=== PATIENT | female | born 1955 | race Caucasian/White ===

== ENCOUNTER 2019-04-05 08:39 | Inpatient (IN) | payer BC ==
[~2019-04-05 08:39] MED LIST: CEFAZOLIN 2 Gram 2 GM/50 ML BAG IVPB ONE; CELECOXIB 100 MG CAPSULE PO ONE; FAMOTIDINE 20MG TABLET PO ONE; MECLIZINE 25 MG TABLET PO ONE; METOCLOPRAMIDE 10 MG TABLET PO ONE; VANCOMYCIN 1GM/200ML PREMIX 1 GM/200 ML PIGGYBACK IVPB ONE
[2019-04-05] MEDS ORDERED: RINGERS SOLUTION,LACTATED 1,000 ML IV ONE ×3 (09:20→12:01)
[2019-04-05 09:31] LABS: ABO GROUP B; ANTIBODY SCREEN NEGATIVE (NEGATIVE); RH TYPE POSITIVE
[2019-04-05] MEDS ORDERED: BUPIVACAINE 0.5% W/EPI MPF 30 ML VIAL SQ ONE (11:06)
[2019-04-05] MEDS ORDERED: TRANEXAMIC ACID 1,000 MG/10 ML ML IU ONE (11:06)
[2019-04-05] MEDS ORDERED: TRANEXAMIC ACID 1,000 MG/10 ML ML IVPB ONE (11:06)
[2019-04-05] MEDS ORDERED: DIPHENHYDRAMINE HCL 25 MG CAPSULE PO PRN (12:12)
[2019-04-05] MEDS ORDERED: KETOROLAC 30 MG/ML VIAL IVP PRN (12:12)
[2019-04-05] MEDS ORDERED: BISACODYL 10 MG SUPP RC PRN (12:12)
[2019-04-05] MEDS ORDERED: ONDANSETRON HCL IV 4 MG/2 ML VIAL IVP PRN (12:12)
[2019-04-05] MEDS ORDERED: HYDROCODONE/APAP 10/325 TABLET PO PRN (12:12)
[2019-04-05] MEDS ORDERED: NALOXONE 0.4 MG/1 ML VIAL IVP PRN (12:12)
[2019-04-05] MEDS ORDERED: MAGNESIUM HYDROXIDE 30 ML UDC PO PRN (12:12)
[2019-04-05] MEDS ORDERED: TRAMADOL HCL 50 MG TABLET PO PRN (12:12)
[2019-04-05] MEDS ORDERED: AL HYDROX/MAG HYDROX 30ML UD PO PRN (12:12)
[2019-04-05] MEDS ORDERED: ACETAMINOPHEN W/ CODEINE 300MG/60MG TABLET PO PRN ×2 (12:12)
[2019-04-05] MEDS ORDERED: HYDROMORPHONE HCL 2 MG/ML VIAL IM PRN (12:12)
[2019-04-05] MEDS ORDERED: ACETAMINOPHEN 325 MG TAB PO PRN (12:12)
[2019-04-05] MEDS ORDERED: ZOLPIDEM TARTRATE 5 MG TABLET PO PRN (12:12)
[2019-04-05] MEDS: HYDROCODONE/APAP 10/325 TABLET PO PRN ×3 (14:22→21:43)
[2019-04-05] MEDS ORDERED: DEXAMETHASONE 4 MG/ML 1ML VIAL IVP ONE (14:52)
[2019-04-05] MEDS ORDERED: 0.9 % SODIUM CHLORIDE 10 ML VIAL IVP ONE (14:52)
[2019-04-05] MEDS ORDERED: ROPIVACAINE HCL (NAROPIN) /PF 5MG/ML 20ML VIAL IV ONE (14:52)
--- NOTE | 2019-04-05 15:18 | Rehab Evaluation ---
Patient Information - Patient Information Diagnosis: R hip OA Ordered Treatment: PT Evaluate and Treat Status: Initial Evaluation Surgery: Yes (Hip THR) Date of Surgery: 04/05/19 Past Medical/Surgical Hx: PAST MEDICAL/SURGICAL HISTORY Past Surgical History LEFT KNEE SCOPE C SCOPEs LEFT BREAST LUMPECTOMY PMH - Respiratory Hx Respiratory Disorders Yes Hx Bronchitis Yes: HX OF Hx Sleep Apnea Yes: HAD NEG STUDY GOING TO DO ANOTHER STUDY Hx of CPAP No PMH - Cardiovascular Hx Cardiovascular Disorders Yes Exercise Tolerance Good Comment: HYPERLIPIDEMIA PMH - Neuro Hx Neurological Disorders No PMH - GI Hx Gastrointestinal Disorders Yes Hx Gastroesophageal Reflux Yes: CONTROLLED WITH PRILOSEC PMH - Hx Genitourinary Disorders Yes Hx Bladder Problem Yes: LEAKING AT TIMES PMH - Endocrine Hx Endocrine Disorders No PMH - Musculoskeletal Hx Musculoskeletal Disorders Yes Hx Arthritis Yes: RIGHT HIP, KNEES, LUMBAR SPINE Comment: OSTEOPENIA PMH - Psych Hx Psychiatric Problems Yes Hx Anxiety Yes Hx Depression Yes PMH - Hematology/Oncology Hx Hematology/Oncology Yes Disorders Hx Cancer Yes: LEFT BREAST Hx Chemotherapy Yes: TAMOXIFEN X'S 4 YRS Premorbid Status: Detail (The patient was independent with all mobility prior to surgery.) Social History: Detail (The patient lives with spouse in a two story house with 4 steps at the enterance and no handrails. The patient's bedroom and bathroom are on the main level. The bathroom is equipped with : walk in shower, hand held shower, shower bench with handles, standard toilet seat with riser seat with handles. The patient has a front wheeled walker, standard cane and crutches and hip kit.) Precautions: [place], Fall, Other (WBAT on the R LE, THR precautions.) - Time With Patient Total Time Spent With Patient (Min): 30 Treatment Procedures: Detail (Initial Evaluation low complexity) Subjective Information - Subjective Information Per Patient (The patient had minimal complaints of R hip pain level 1 at the highest.) Objective Data - Mental Status Patient Orientation: Oriented x3 - Visual Perception Appears within normal limits for therapeutic activities - ROM Not within normal limits (The patient's R hip AROM is within THR pecautions. All other AROM is WNL.) - Strength/Tone Not within normal limits (The patient's LE strength was not tested however is WFL ie: pt. is able to lift LE's in and out of bed and ambulate.) - Bed Mobility Independent (The patient was independent with supine to and from sit transfer.) - Transfers Independent (The patient is independent with sit to and from stand transfer.) - Balance Balance Sitting: Good Balance Standing: Good - Sensation Intact - Gait Detail (The patient ambulated with front wheeled walker WBAT on the R LE a distance of 7.5 feet x 1 and 120 feet x 1 with assistance with equipment only.) Therapy Assessment - Therapy Assessment Detail (The patient was independent with bed mobility , transfers and ambulated on levels. The patient will be seen for 1 to 2 more sessions for completion of inpt. PT goals.) Problem List - Problem List Physical Therapy Problem List: Detail (Decreased R LE strength.) Goals - Goals Physical Therapy Goals: 1) The patient will demonstrate good understanding of THR precautions. 2) The patient will ambulate on stairs using proper technique with supervision for safety. 3) The patient will be independent with THR HEP. Prognosis - Prognosis Good Plan - Plan Physical Therapy Plan: PT 1-2 sessions for instruction in THR HEP and gait training on stairs.
[2019-04-05] MEDS ORDERED: PANTOPRAZOLE SODIUM 40 MG TABLET PO SCH (17:00)
[2019-04-05] MEDS ORDERED: VENLAFAXINE ER 75 MG CAPSULE PO SCH (17:00)
[2019-04-05] MEDS ORDERED: CHOLECALCIFEROL 1,000 UNIT TABLET PO SCH (17:00)
[2019-04-05] MEDS ORDERED: SIMVASTATIN 10MG TABLET PO SCH (17:00)
[2019-04-05] MEDS ORDERED: MULTIVITAMINS/MINERALS TABLET PO SCH (17:00)
[2019-04-05] MEDS: CEFAZOLIN 2 Gram 2 GM/50 ML BAG IVPB SCH (18:05)
[2019-04-05] MEDS: POTASSIUM CHLORIDE/D5-0.9%NACL 20 MEQ/1,000 ML BAG IV SCH (18:05)
[2019-04-05] MEDS: DOCUSATE SODIUM 100 MG CAPSULE PO SCH (21:43)
[2019-04-06] MEDS: POTASSIUM CHLORIDE/D5-0.9%NACL 20 MEQ/1,000 ML BAG IV SCH ×3 (02:00→14:05)
[2019-04-06] MEDS: CEFAZOLIN 2 Gram 2 GM/50 ML BAG IVPB SCH ×2 (02:42→10:21)
[2019-04-06] MEDS: HYDROCODONE/APAP 10/325 TABLET PO PRN ×2 (06:11→10:16)
[2019-04-06 06:50] LABS: HEMATOCRIT 32.7 % (35.0-47.0); HEMOGLOBIN 10.1 gm/dl (11.6-16.0)
[2019-04-06 07:04] LABS: BLOOD UREA NITROGEN 11 mg/dL (8-23); CREATININE 0.6 mg/dL (0.5-0.9); EST GLOMERULAR FILTRATION RATE > 60 mL/min; GLUCOSE,RANDOM 109 mg/dL (74-109)
[2019-04-06] MEDS: DOCUSATE SODIUM 100 MG CAPSULE PO SCH (09:19)
[2019-04-06] MEDS ORDERED: RIVAROXABAN 10 MG TABLET PO SCH (10:00)
[2019-04-06] MEDS ORDERED: FERROUS SULFATE 325 MG TAB PO SCH (10:00)
--- NOTE | 2019-04-06 10:15 | Rehab Evaluation ---
Patient Information - Patient Information Diagnosis: R hip OA Ordered Treatment: OT Evaluate and Treat Status: Initial Evaluation Surgery: Yes (right NII) Date of Surgery: 04/05/19 Past Medical/Surgical Hx: PAST MEDICAL/SURGICAL HISTORY Past Surgical History LEFT KNEE SCOPE C SCOPEs LEFT BREAST LUMPECTOMY PMH - Respiratory Hx Respiratory Disorders Yes Hx Bronchitis Yes: HX OF Hx Sleep Apnea Yes: HAD NEG STUDY GOING TO DO ANOTHER STUDY Hx of CPAP No PMH - Cardiovascular Hx Cardiovascular Disorders Yes Exercise Tolerance Good Comment: HYPERLIPIDEMIA PMH - Neuro Hx Neurological Disorders No PMH - GI Hx Gastrointestinal Disorders Yes Hx Gastroesophageal Reflux Yes: CONTROLLED WITH PRILOSEC PMH - Hx Genitourinary Disorders Yes Hx Bladder Problem Yes: LEAKING AT TIMES PMH - Endocrine Hx Endocrine Disorders No PMH - Musculoskeletal Hx Musculoskeletal Disorders Yes Hx Arthritis Yes: RIGHT HIP, KNEES, LUMBAR SPINE Comment: OSTEOPENIA PMH - Psych Hx Psychiatric Problems Yes Hx Anxiety Yes Hx Depression Yes PMH - Hematology/Oncology Hx Hematology/Oncology Yes Disorders Hx Cancer Yes: LEFT BREAST Hx Chemotherapy Yes: TAMOXIFEN X'S 4 YRS Premorbid Status: Detail (The patient was independent with all mobility and IADLs prior to surgery.) Social History: Detail (The patient lives with spouse in a two story house with 4 steps at the entrance and no handrails. The patient's bedroom and bathroom are on the main level. The bathroom is equipped with : walk in shower, hand held shower, shower bench with handles, standard toilet seat with riser seat with handles. The patient has a front wheeled walker, standard cane and crutches and hip kit.) Precautions: [place], Fall, Other (WBAT on the R LE, THR precautions.) - Time With Patient Total Time Spent With Patient (Min): 40 Treatment Procedures: Detail (OT eval low complexity) Subjective Information - Subjective Information Per Patient Objective Data - Pain Pain Present: Yes (07/23) - Mental Status Patient Orientation: Oriented x3 - Visual Perception Appears within normal limits for therapeutic activities - ROM Within normal limits ([place] UE AROM WNL) - Strength/Tone Within normal limits (Cal[place] UE strength WNL) - Coordination Appears within normal limits for therapeutic activities - Bed Mobility Independent (Ind with supine to sit) - Transfers Independent (Ind with sit to stand) - Balance Balance Sitting: Good Balance Standing: Good - Sensation Intact - Gait Detail (Pt ambulating in room with 2 wheeled walker Indly.) - ADL's/IADL's Detail (Pt educated and able to demonstrate learning of modified LE dressing techniques using adaptive equipment while maintaining total hip precautions. Pt was able to doff briefs and slipper socks and don briefs, pants, socks and shoes Indly using drop hammer mechanic, sock aid and long shoe horn. Reviewed kitchen and shower safety and modifications, pt able to verbalize understanding.) Therapy Assessment - Therapy Assessment Detail (Pt is Ind with modified LE dressing techniques using adaptive equipment.) Problem List - Problem List Physical Therapy Problem List: Detail (Decreased R LE strength.) Occupational Therapy Problem List: Detail (No current IP OT problems identified.) Goals - Goals Physical Therapy Goals: 1) The patient will demonstrate good understanding of THR precautions. 2) The patient will ambulate on stairs using proper technique with supervision for safety. 3) The patient will be independent with THR HEP. Occupational Therapy Goals: No current IP OT goals identified. Prognosis - Prognosis Good Plan - Plan Physical Therapy Plan: PT 1-2 sessions for instruction in THR HEP and gait training on stairs. Occupational Therapy Plan: Pt is discharged from IP OT. Thank you for this referral.
--- NOTE | 2019-04-06 11:26 | Physical Therapy Tx Note ---
Physical Therapy Tx Note - Treatment Note Tolerated: Good Total Time Spent With Patient: 25 Physical Therapy Tx Note: Detail (The patient was up in chair when PT arrived and complaining of R hip pain which she did not rate using 0-10 pain scale. The patient ambulated with front wheeled walker WBAT on the R LE independently a distance of 200 feet x 1 . The patient ambulated on stairs with use of one railing and stairs using proper technique with supervision for safety. Pt. was also shown how to use a person on one side as a railing due to pt. has no railings at home. The patient completed THR HEP including quad sets, hamstring sets, ankle pumps,gluteal sets, supine heel slides and hip abduction. Car transfer technique was reviewed with pt. The patient has met all inpt. PT goals and is discharged from inpt. PT.) Physical Therapy Problem List: Detail (Decreased R LE strength.) Physical Therapy Goals: 1) The patient will demonstrate good understanding of THR precautions.(Goal Met). 2) The patient will ambulate on stairs using proper technique with supervision for safety.(Goal Met). 3) The patient will be independent with THR HEP.(Goal Met) Physical Therapy Plan: The patient is discharged from inpt. PT and is to continue with Home PT.
[2019-04-06] MEDS ORDERED: LIDOCAINE 2% MDV (20MG/ML) 20ML VIAL IV ONE (12:28)
[2019-04-06] MEDS ORDERED: ONDANSETRON HCL IV 4 MG/2 ML VIAL IVP ONE (12:28)
[2019-04-06] MEDS ORDERED: EPHEDRINE SULFATE 50 MG/ML ML IV ONE (12:28)
[2019-04-06] MEDS ORDERED: MIDAZOLAM HCL 2MG/2ML VIAL IV ONE (12:28)
[2019-04-06] MEDS ORDERED: PROPOFOL 10 MG/ML VIAL IV ONE (12:28)
--- NOTE | 2019-04-11 08:20 | Discharge Summary ---
DATE OF ADMISSION: 04/05/2019 DATE OF DISCHARGE: 04/06/2019 DATE OF SURGERY: 04/05/2019 HISTORY: The patient is a delightful 64-year-old female who presents with end- stage arthrosis of her right hip. She was admitted after right total hip arthroplasty. Postoperatively she did well. Discharge hemoglobin was 10.1. She did not require transfusion. The plan is to discharge her home in the care of her family, and home PT visiting nurse has been arranged. She is given [place] for pain and Xarelto followed by aspirin for DVT prophylaxis. She will follow up in my office in 4 weeks. DISCHARGE CONDITION: Good. FINAL DIAGNOSIS: End-stage arthrosis of the right hip. SECONDARY DIAGNOSIS: Operative blood loss anemia. OPERATIONS OR PROCEDURES: Cementless right total hip arthroplasty. [facility]
--- NOTE | 2019-04-11 14:00 | Operative Note ---
DATE OF SURGERY: 04/05/2019 PREOPERATIVE DIAGNOSIS: End-stage arthrosis of the right hip. POSTOPERATIVE DIAGNOSIS: End-stage arthrosis of the right hip. OPERATION: Cementless right total hip arthroplasty using [employer]son [employer]hew components with a size 54 no-hole Reflection cup, 35-degree offset 32 mm diameter highly crosslinked liner, a size 13 high-offset cementless Chacra stem with a -3 32 mm diameter Oxinium head. STAFF SURGEON: Bacilio Jones MD ANESTHESIA: Spinal. PREPARATION: Chloraprep. INDIVIDUAL CONSIDERATIONS: None. PROCEDURE: The patient was taken to the operating room, placed supine on the operating room table. She had a successful induction of spinal anesthetic. She was then placed on her side right side up, and her right leg and hip were prepped and draped in the usual fashion. The patient had direct posterior approach to the hip. Sharp dissection carried down through skin and subcutaneous tissues. Small veins were coagulated with a Bovie. The tensor gluteal fascia was opened along the entire length of the incision, and deep retractors were placed. Short external rotators were identified, piriformis fossa removed exposing the posterior capsule. Posterior capsulectomy was performed. I attempted to dislocate the hip but it was being blocked by osteophytes, so I actually had to remove superior and posterior osteophytes. Then after I did that, I was able to dislocate the hip. A femoral neck cut was then made just about a fingerbreadth above the lesser troc with an oscillating saw. Rim capsulectomy was performed. Large osteophytes posteriorly and circumferentially removed with a lambotte. Starting with a 45 mm reamer to get to the medial wall, I reamed to the introitus to a size 53 for a size 54 cup. After thorough irrigation, I impacted a size 54 cup with solid cementless fixation and solid bony contact in 20 degrees of forward flexion and 40 degrees of abduction using the extraarticular alignment guide and bony landmarks. A center cap screw was placed. After irrigation, I placed a 35-degree offset 32 mm diameter liner with the offset posteriorly and inferiorly. This gave a solid acetabular construct. The proximal femur was delivered into the wound, and box cutting osteotome was used to remove the proximal metaphyseal bone. Mid stem reaming was done to a 13. I started feeling cortex between 11-12. I sent ahead and broached to a size 13 and dialed in anteversion about 25 degrees. After calcar reaming, a -3 head gave me absolute stability. I removed the trial, irrigated out completely, impacted a size 13 high-offset cementless Chacra stem with solid cementless fixation, solid calcar contact. After thorough irrigation again, I went ahead and dried the Mendoza taper and impacted a -3 Oxinium head. I reduced the hip, solid stability, actually it was completely stable throughout all range of motion even with knee to chest and rotated 90 degrees internally. The sciatic nerve was inspected and found to be completely intact. Hemostasis was obtained with the Bovie. Final irrigation. I then mixed 1 g of tranexamic acid with 30 mL of saline and placed this deep to the fascia. The fascia was then closed with a running #2 quill, subcu was closed in multiple layers of 0 quill, skin was closed with celestina. The skin was infiltrated with 30 mL of 0.5% Marcaine with epinephrine prior, and a sterile bulky compressive MANDIE-type dressing was applied. The patient tolerated the procedure well. Needle and sponge counts were correct. Estimated blood loss was 500 mL. We will check hemoglobin in the morning. There were no complications. [facility]
== END 2019-04-06 15:20 | disposition home health service (06) | DRG 470 ==
LOC: MEDSURG 08:39
PROVIDERS: ADMIT Orthopaedic Surgery; ATTEND Orthopaedic Surgery
PROC: 0SR906A Replacement of Right Hip Joint with Oxidized Zirconium on Polyethylene Synthetic Substitute, Uncemented, Open Approach (ICD-10-PCS; principal; 2019-04-05 10:30)
DX: M16.11 Unilateral primary osteoarthritis, right hip (principal); I10 Essential (primary) hypertension; E78.00 Pure hypercholesterolemia, unspecified
CPT/HCPCS: 76942; 80048; 85014; 85018; 86850; 86900; 86901; C1776; J1885; J2405; J3370; J3480; J7120